=== PATIENT | female | born 1990 | race Caucasian/White ===

== ENCOUNTER 2020-10-03 07:46 | Emergency (ER) | payer OTHER ==
[~2020-10-03] VITALS: Ht 157.5 cm; Wt 63.5 kg
[2020-10-03] MEDS ORDERED: PYRIDIUM200 MG PO (10:22)
[2020-10-03] MEDS ORDERED: CIPRO500 MG PO (10:22)
== END 2020-10-03 10:32 | disposition home or self-care (01) ==
LOC: ER 07:46
DX: R30.0 Dysuria (principal)